=== PATIENT | female | born 1990 | race American Indian/Alaskan Native ===

== ENCOUNTER 2016-08-09 13:56 | Emergency (ER) | payer OTHER ==
[2016-08-09 13:56] VITALS: BMI 48.4
[2016-08-09 14:04] VITALS: RESP 18; TEMP 98.8
[2016-08-09] MEDS ORDERED: DiphenhydrAMINE 50 mg/ml Inj IVP STA (14:49)
[2016-08-09] MEDS ORDERED: Sodium Chloride 0.9% 500 ML IV STA (14:50)
[2016-08-09 15:03] VITALS: BP 130/79; PULSE 91; O2SAT 99
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
--- NOTE | 2016-08-09 15:19 | CT ---
PROCEDURE: CT HEAD WITHOUT CONTRAST. HISTORY: r/o bleed, mass COMPARISON: None available. TECHNIQUE: Axial computed tomography images were obtained through the head/brain without intravenous contrast. Radiation dose: Total exam DLP = 677 mGy-cm. This CT exam was performed using one or more of the following dose reduction techniques: Automated exposure control, adjustment of the mA and/or kV according to patient size, and/or use of iterative reconstruction technique. FINDINGS: HEMORRHAGE: No intracranial hemorrhage. BRAIN: No mass effect or edema. No atrophy or chronic microvascular ischemic changes. VENTRICLES: Unremarkable. No hydrocephalus. CALVARIUM: Unremarkable. PARANASAL SINUSES: Unremarkable as visualized. No significant inflammatory changes. MASTOID AIR CELLS: Unremarkable as visualized. No inflammatory changes. OTHER FINDINGS: None. IMPRESSION: Normal CT of the Head.
== END 2016-08-09 16:31 | disposition home or self-care (01) ==
LOC: ED 13:56
DX: R51 Headache (principal)
CPT/HCPCS: 70450; 96374; 96375; 99285; J1200; J2765; J7040